=== PATIENT | male | born 1970 | race Caucasian/White ===

== ENCOUNTER 2016-12-29 16:35 | Inpatient (IN) | payer OTHER ==
[~2016-12-29] VITALS: Ht 188 cm; Wt 153.2 kg
[~2016-12-29 16:35] MED LIST: LORT5TAB PO; Z.0.NO CURRENT MEDS
[2016-12-29 16:38] VITALS: BP 150/96; PULSE 79; RESP 16; TEMP 98.7; O2SAT 97
[2016-12-29] MEDS ORDERED: LISI20TA PO (17:37)
[2016-12-29] MEDS ORDERED: TEST1GEL15 TOPICAL (17:37)
[2016-12-29] MEDS ORDERED: SODIUM CHLOR 0.9% 1000 ML INJ 1,000 ML IV SCH (17:40)
[2016-12-29] MEDS ORDERED: SODIUM CHLORIDE 0.9% FLUSH 5 ML FLUSH IVF PRN (17:45)
[2016-12-29] MEDS ORDERED: KETOROLAC TROMETHAMINE 30 MG/ML (IVP) VIAL IVP ONE (17:45)
[2016-12-29] MEDS ORDERED: ONDANSETRON HCL 4 MG/2 ML VIAL IVP ONE (17:45)
--- NOTE | 2016-12-29 18:00 | PD ---
HPI Chief Complaint: Abdominal Pain Time Seen by Provider: 17:22 Travel History International Travel<30 days: No Contact w/Intl Traveler<30days: No Traveled to known affect area: No History of Present Illness HPI 46yo M with PMH of appendectomy presents to the ED with c/o left lower abdominal pain for 4 hours. Pain is constant and sometimes goes to suprapubic region. States he had hematuria. +NBNB vomiting today. Denies any fever, chest pain, sob, diarrhea. Did not take anything for pain before. PFSH Past Medical History Diminished Hearing: No Hypertension: Yes Medical other: Yes (low testosterone) Tetanus Vaccination: < 5 Years Influenza Vaccination: Yes Past Surgical History Appendectomy: Yes Other Surgery: Yes (RHINOPLASTY) Social History Alcohol Use: Yes (OCCASIONALLY, 2 mixed drinks 12/27/16) Tobacco Use: Yes (chewing tobacco daily) Substance Use: No Allergies-Medications (Allergen,Severity, Reaction): Coded Allergies: No Known Allergies (Verified , 12/29/16) Reported Meds & Prescriptions Reported Meds & Active Scripts Active Reported Testosterone Topical (Testosterone) 25 Mg/2.5 Gm Gel 50 Mg TOPICAL DAILY Lisinopril-Hctz 20-12.5 Mg Tab 1 Tab PO DAILY Review of Systems Except as stated in HPI: all other systems reviewed are Neg Physical Exam Narrative GENERAL: 46yo M in moderate distress. SKIN: Warm and dry. HEAD: Atraumatic. Normocephalic. EYES: Pupils equal and round. No scleral icterus. No injection or drainage. ENT: No nasal bleeding or discharge. Mucous membranes pink and moist. NECK: Trachea midline. No JVD. CARDIOVASCULAR: Regular rate and rhythm. No murmur appreciated. RESPIRATORY: No accessory muscle use. Clear to auscultation. Breath sounds equal bilaterally. GASTROINTESTINAL: Abdomen soft,+LLQ, suprapubic and mild ttp epigastric. Obese. No rebound tenderness or guarding. BACK: +CVA tenderness of left. MUSCULOSKELETAL: No obvious deformities. No clubbing. No cyanosis. No edema. NEUROLOGICAL: Awake and alert. No obvious cranial nerve deficits. Motor grossly within normal limits. Normal speech. PSYCHIATRIC: Appropriate mood and affect; insight and judgment normal.4 Data Data Last Documented VS Vital Signs Date Time Temp Pulse Resp B/P Pulse Ox O2 Delivery O2 Flow Rate FiO2 12/29/16 19:07 78 16 168/72 99 Room Air 12/29/16 16:38 98.7 Orders Urinalysis - C+S If Indicated (12/29/16 16:43) Complete Blood Count With Diff (12/29/16 17:40) Comprehensive Metabolic Panel (12/29/16 17:40) Lipase (12/29/16 17:40) Prothrombin Time / Inr (Pt) (12/29/16 17:40) Act Partial Throm Time (Ptt) (12/29/16 17:40) Ct Abd/Pel W Iv Contrast(Rout) (12/29/16 17:40) Iv Access Insert/Monitor (12/29/16 17:40) Ecg Monitoring (12/29/16 17:40) Oximetry (12/29/16 17:40) Ondansetron Inj (Zofran Inj) (12/29/16 17:45) Sodium Chlor 0.9% 1000 Ml Inj (Ns 1000 M (12/29/16 17:40) Sodium Chloride 0.9% Flush (Ns Flush) (12/29/16 17:45) Electrocardiogram (12/29/16 17:40) Ketorolac Inj (Toradol Inj) (12/29/16 17:45) Morphine Inj (Morphine Inj) (12/29/16 19:45) Sodium Chlor 0.9% 1000 Ml Inj (Ns 1000 M (12/29/16 20:15) Creatine Kinase (Cpk) (12/29/16 18:00) Morphine Inj (Morphine Inj) (12/29/16 20:45) Admit Order (Ed Use Only) (12/29/16 21:19) Labs Laboratory Tests Test 12/29/16 12/29/16 18:00 20:20 White Blood Count 11.5 TH/MM3 Red Blood Count 5.06 MIL/MM3 Hemoglobin 14.8 GM/DL Hematocrit 44.0 % Mean Corpuscular Volume 87.0 FL Mean Corpuscular Hemoglobin 29.3 PG Mean Corpuscular Hemoglobin 33.7 % Concent Red Cell Distribution Width 12.6 % Platelet Count 193 TH/MM3 Mean Platelet Volume 10.2 FL Neutrophils (%) (Auto) 82.0 % Lymphocytes (%) (Auto) 11.2 % Monocytes (%) (Auto) 5.2 % Eosinophils (%) (Auto) 0.8 % Basophils (%) (Auto) 0.8 % Neutrophils # (Auto) 9.4 TH/MM3 Lymphocytes # (Auto) 1.3 TH/MM3 Monocytes # (Auto) 0.6 TH/MM3 Eosinophils # (Auto) 0.1 TH/MM3 Basophils # (Auto) 0.1 TH/MM3 CBC Comment DIFF FINAL Differential Comment Prothrombin Time 11.9 SEC Prothromb Time International 1.1 RATIO Ratio Activated Partial 26.2 SEC Thromboplast Time Sodium Level 140 MEQ/L Potassium Level 3.9 MEQ/L Chloride Level 104 MEQ/L Carbon Dioxide Level 25.2 MEQ/L Anion Gap 11 MEQ/L Blood Urea Nitrogen 16 MG/DL Creatinine 1.40 MG/DL Estimat Glomerular Filtration 55 ML/MIN Rate Random Glucose 236 MG/DL Calcium Level 9.2 MG/DL Total Bilirubin 0.4 MG/DL Aspartate Amino Transf 25 U/L (AST/SGOT) Alanine Aminotransferase 71 U/L (ALT/SGPT) Alkaline Phosphatase 58 U/L Total Creatine Kinase 204 U/L Total Protein 7.5 GM/DL Albumin 3.9 GM/DL Lipase 199 U/L Urine Color NESTOR Urine Turbidity CLOUDY Urine pH 6.0 Urine Specific Rifle 1.031 Urine Protein TRACE mg/dL Urine Glucose (UA) 250 mg/dL Urine Ketones TRACE mg/dL Urine Occult Blood LARGE Urine Nitrite NEG Urine Bilirubin NEG Urine Leukocyte Esterase NEG Urine RBC INNUM /hpf Urine WBC 3-5 /hpf Urine Squamous Epithelial 0-5 /hpf Cells Urine Bacteria NONE /hpf Microscopic Urinalysis Comment CULT NOT INDICATED MDM Medical Decision Making Medical Screen Exam Complete: Yes Emergency Medical Condition: Yes Interpretation(s) EKG: NSR 71bpm. Normal axis. Q wave III. No ST segment elevation or depression. Differential Diagnosis Acute diverticulitis vs. nephrolithiasis vs. pyelonephritis vs. colitis vs. gastritis vs. pancreatitis Narrative Course 46yo M with left lower abdominal pain and vomiting for 4 hours. Pt admits to drinking over the weekend but is not a chronic alcoholic. Labs reviewed, mild leukocytosis at 11.5. Creatinine is elevated at 1.40. Do not have prior to compare to. Glucose 236. Lipase normal. Urine is dark color. UA pending. CT a/p showed 1.5cm nonobstructing right kidney stone. Benign appearing right renal cysts. Normal bowel gas pattern. Pt given toradol 30mg IV, NS IVF, and zofran 4mg IV. Pt reevaluated at bedside and still with a lot of pain. Morphine 4mg IV given. Ordered another liter os NS IVF. Pt is still in a lot of pain. It has improved from prior. Pt reevaluated at bedside after a second dose of morphine 4mg IV and still in a lot of pain. Pt may have a kidney stone that is not radioopaque. CPK 204. Will admit pt for intractable pain and GRUPO. Discussed with [facility] hospitalist Dr. Ny and admitted to Dr. Hess. Diagnosis Primary Impression: Intractable abdominal pain Additional Impression: GRUPO (acute kidney injury) Admitting Information Admitting Physician Requests: Observation Eloina Forrester DO Dec 29, 2016 18:00
[2016-12-29 18:10] VITALS: BP 168/85; PULSE 70; RESP 20; O2SAT 98
[2016-12-29 18:21] LABS: AUTOMATED NEUTROPHIL # 9.4 TH/MM3 (1.8-7.7); BASOPHIL # 0.1 TH/MM3 (0-0.2); BASOPHIL % 0.8 % (0.0-2.0); EOSINOPHIL # 0.1 TH/MM3 (0-0.4); EOSINOPHIL % 0.8 % (0.0-4.0); HEMO FLAGS DIFF FINAL; LYMPH % 11.2 % (9.0-44.0); LYMPHOCYTE # 1.3 TH/MM3 (1.0-4.8); MEAN CORPUSCULAR HEMOGLOBIN 29.3 PG (27.0-34.0); MEAN CORPUSCULAR HGB CONC 33.7 % (32.0-36.0); MONO % 5.2 % (0.0-8.0); PLATELET COUNT 193 TH/MM3 (150-450); RED BLOOD COUNT 5.06 MIL/MM3 (4.50-5.90); RED CELL DISTRIBUTION WIDTH 12.6 % (11.6-17.2); WHITE BLOOD COUNT 11.5 TH/MM3 (4.0-11.0)
[2016-12-29 18:28] LABS: CHLORIDE 104 MEQ/L (98-107); POTASSIUM 3.9 MEQ/L (3.5-5.1); SODIUM (NA) 140 MEQ/L (136-145)
[2016-12-29 18:32] LABS: ANION GAP 11 MEQ/L (5-15); BICARBONATE 25.2 MEQ/L (21.0-32.0); BLOOD UREA NITROGEN 16 MG/DL (7-18)
[2016-12-29 18:34] LABS: APTT (PATIENT) 26.2 SEC (24.3-30.1); INTERNATIONAL NORMALIZED RATIO 1.1 RATIO; PROTHROMBIN TIME - PATIENT 11.9 SEC (9.8-11.6)
[2016-12-29 18:35] LABS: ALT (GPT) 71 U/L (12-78); AST (GOT) 25 U/L (15-37); GLOMERULAR FILTRATION RATE 55 ML/MIN (>89)
[2016-12-29 18:36] LABS: TOTAL BILIRUBIN ADULT 0.4 MG/DL (0.2-1.0)
[2016-12-29 18:38] LABS: ALKALINE PHOSPHATASE 58 U/L (45-117)
[2016-12-29 19:07] VITALS: BP 168/72; PULSE 78; RESP 16; O2SAT 99
--- NOTE | 2016-12-29 19:38 | RADHPO ---
EXAM DATE/TIME: 12/29/2016 19:04 [place] COMPARISON: No previous studies available for comparison. INDICATIONS : Abdomen pain, vomiting. IV CONTRAST: 93 cc Omnipaque 350 (iohexol) IV ORAL CONTRAST: No oral contrast ingested. RADIATION DOSE: 22.44 CTDIvol (mGy) MEDICAL HISTORY : Hypertension. SURGICAL HISTORY : Appendectomy. ENCOUNTER: Initial ACUITY: 1 day PAIN SCALE: 5/10 LOCATION: abdomen TECHNIQUE: Volumetric scanning of the abdomen and pelvis was performed. Using automated exposure control and ad justment of the mA and/or kV according to patient size, radiation dose was kept as low as reasonably achievable to obtain optimal diagnostic quality images. FINDINGS: LOWER LUNGS: The visualized lower lungs are clear. LIVER: Homogeneous density without lesion. There is no dilation of the biliary tree. No calcified gallston es. There is diffuse fatty infiltration throughout the liver. SPLEEN: Normal size without lesion. PANCREAS: Within normal limits. KIDNEYS: There is a 1.5 cm stone upper pole right kidney not causing obstruction. There is a 2.6 cm right kidn ey cyst. There is some cortical scarring of the right kidney. No hydronephrosis. The left kidney is u nremarkable. ADRENAL GLANDS: Within normal limits. VASCULAR: There is no aortic aneurysm. BOWEL/MESENTERY: The stomach, small bowel, and colon demonstrate no acute abnormality. There is no free intraperitone al air or fluid. No inflammatory changes. ABDOMINAL WALL: Within normal limits. RETROPERITONEUM: There is no lymphadenopathy. BLADDER: No wall thickening or mass. REPRODUCTIVE: Within normal limits. INGUINAL: There is no lymphadenopathy or hernia. MUSCULOSKELETAL: Within normal limits for patient age. CONCLUSION: 1. 1.5 cm nonobstructing right kidney stone. 2. Benign-appearing right renal cysts. 3. Cortical scarring right kidney. 4. Fatty infiltration of the liver. 5. Normal bowel gas pattern. Jose Pelletier MD on December 29, 2016 at 19:34 Board Certified Radiologist. This report was verified electronically.
[2016-12-29] MEDS ORDERED: MORPHINE SULFATE 4 MG/ML INJ IV PUSH ONE ×2 (19:45→20:45)
[2016-12-29] MEDS ORDERED: SODIUM CHLOR 0.9% 1000 ML INJ 1,000 ML IV ONE (20:15)
[2016-12-29 20:27] LABS: BLOOD, URINE LARGE (NEG); GLUCOSE,URINE 250 mg/dL (NEG); KETONE, URINE TRACE mg/dL (NEG); NITRITE,URINE NEG (NEG)
[2016-12-29 20:31] LABS: CREATINE KINASE 204 U/L (39-308)
[2016-12-29 20:31] LABS: URINE COLOR AMBER (YELLW/STRAW)
[2016-12-29 20:32] LABS: COMMENT (UR) CULT NOT INDICATED; CULTURE IF INDICATED CULT NOT INDICATED; RBC, URINE INNUM /hpf (0-3); SQUAMOUS EPITHELIAL CELL URINE 0-5 /hpf (0-5)
[2016-12-29] MEDS ORDERED: NALOXONE HCL 0.4 MG/ML AMP IV PRN (21:30)
[2016-12-29] MEDS ORDERED: ONDANSETRON HCL 4 MG/2 ML VIAL IV PUSH PRN (21:30)
[2016-12-29] MEDS ORDERED: MORPHINE SULFATE 4 MG/ML INJ IV PRN ×2 (21:30)
[2016-12-29] MEDS ORDERED: ONDANSETRON HCL 4 MG/2 ML VIAL IV PUSH ONE (21:30)
[2016-12-29] MEDS: SODIUM CHLOR 0.9% 1000 ML INJ 1,000 ML IV SCH (21:30)
[2016-12-29 21:50] VITALS: BP 158/77; PULSE 78; RESP 16; O2SAT 98
[2016-12-29] MEDS: cefTRIAXone INJ 1,000 MG in SODIUM CHLORIDE 0.9% INJ 100 ML IV SCH (22:11)
[2016-12-29] MEDS: ONDANSETRON HCL 4 MG/2 ML VIAL IV PUSH PRN (22:48)
[2016-12-29] MEDS ORDERED: IOHEXOL 350 MG/ML 10 ML VIAL (for RAD DIAG) IV ONE (23:01)
[2016-12-30 02:30] VITALS: BP 152/70; PULSE 78; RESP 16; O2SAT 98
[2016-12-30] MEDS: SODIUM CHLOR 0.9% 1000 ML INJ 1,000 ML IV SCH ×4 (06:28→23:17)
[2016-12-30 06:35] VITALS: BP 101/60; PULSE 87; RESP 16
[2016-12-30 07:01] LABS: AUTOMATED NEUTROPHIL # 7.9 TH/MM3 (1.8-7.7); BASOPHIL # 0.1 TH/MM3 (0-0.2); BASOPHIL % 0.9 % (0.0-2.0); EOSINOPHIL # 0.1 TH/MM3 (0-0.4); EOSINOPHIL % 1.1 % (0.0-4.0); HEMATOCRIT 41.8 % (39.0-51.0); HEMO FLAGS DIFF FINAL; LYMPH % 16.9 % (9.0-44.0); LYMPHOCYTE # 1.8 TH/MM3 (1.0-4.8); MEAN CELL VOLUME 88.2 FL (80.0-100.0); MEAN CORPUSCULAR HEMOGLOBIN 29.9 PG (27.0-34.0); MEAN CORPUSCULAR HGB CONC 33.9 % (32.0-36.0); MONO % 8.2 % (0.0-8.0); NEUT % 72.9 % (16.0-70.0); PLATELET COUNT 198 TH/MM3 (150-450); RED BLOOD COUNT 4.73 MIL/MM3 (4.50-5.90); RED CELL DISTRIBUTION WIDTH 12.5 % (11.6-17.2); WHITE BLOOD COUNT 10.8 TH/MM3 (4.0-11.0)
[2016-12-30 07:08] LABS: POTASSIUM 3.9 MEQ/L (3.5-5.1)
[2016-12-30 07:11] LABS: BICARBONATE 27.2 MEQ/L (21.0-32.0)
[2016-12-30] MEDS ORDERED: NON-FORMULARY DRUG (Lisinopril-Hctz 1 TAB) PO SCH (09:00)
[2016-12-30] MEDS ORDERED: HYDROCHLOROTHIAZIDE 25 MG TAB PO SCH (09:00)
[2016-12-30] MEDS ORDERED: LISINOPRIL 20 MG TAB PO SCH (09:00)
--- NOTE | 2016-12-30 09:50 | MH ---
cc: SHOLA HOLMAN M.D. DATE OF ADMISSION 12/29/2016 ADMISSION DIAGNOSIS 1. Left flank and left lower abdominal pain with hematuria, probable secondary to kidney stone. 2. Mild acute kidney injury. 3. Hypertension 4. Hyperlipidemia 5. Hypogonadotropic 6. Type 2 diabetes mellitus 7. Obstructive sleep apnea 8. Morbid obesity PERTINENT HISTORY This is a 46-year-old white male who presented to the emergency room on 12/29 with a 4-hour history of sudden onset of left flank and left lower abdominal pain with associated vomiting. The pain was constant and at times more severe when it would radiate into the suprapubic region. He also noted gross hematuria. He had some vomiting as well and no diarrhea. No rectal bleeding. No fever, chest pain or shortness of breath. In the ED, he required morphine for some measure of control of his pain and it was still persistent. His creatinine was a little high at 1.4 on admission and thought there may be some element of acute kidney injury. A CT scan of the abdomen and pelvis on 12/29 showed fatty liver. A 1.5 cm nonobstructing right kidney stone, he had benign appearing right renal cyst, cortical scarring of the right kidney. There was, however no mention of any stone on the left side where his pain once. There was no hydronephrosis present. He states his pain is much better this morning and he has not had a shot of pain medication since last evening. He has never had kidney stones that he is aware of. MEDICAL HISTORY 1. He has under treatment for hypertension. 2. He has hyperlipidemia but declined any treatment back in July 2014. 3. He was has type [address] Hess is his\ primary care physician who wanted to put him on metformin and ordered it for him in July when his hemoglobin A1c was 7.4, but the patient has not been taking it. He declined diabetic education at that time then. 4. He does take testosterone for hypogonadism. 5. He has never had any heart disease or kidney disease. 6. He has had no peptic ulcer disease or colon disease. 7. No stroke or seizures. 8. No lung disease. PAST SURGICAL HISTORY 1. He has had a tonsillectomy. 2. He had appendectomy. 3. He had a septoplasty on both sides and submucosal resection of the turbinates bilaterally. ALLERGIES None MEDICATIONS According to his EHR in the office, he is on: 1. Lisinopril 20/25 one a day 2. Testosterone powder which he applies 75 mg daily FAMILY HISTORY His parents are living mother is 69 has fibromyalgia. His father is 69 has had prior cardiac stents. He has had ablation procedure for arrhythmias. He has had hypertension and an aunt with diabetes. SOCIAL HISTORY He has been chewing tobacco using about one can a day for 30 years. Never smoked cigarettes. Rarely uses alcohol. He is a [employer] has been once. REVIEW OF SYSTEMS GENERAL: No fever, chills or sweats. HEENT: No runny nose, sore throat. CARDIOVASCULAR: No chest pain, orthopnea, PND. PULMONARY: No cough, hemoptysis, wheezing. GI: He had the left lower abdominal pain and flank pain as mentioned that is improved. No diarrhea. He did have vomiting. No rectal bleeding. : With hematuria. EXTREMITIES: Without edema or pain. SKIN: Without rash. NEUROLOGIC: Without headache, focal weakness, sensory loss or confusion. PHYSICAL EXAM An obese male in no acute distress. VITAL SIGNS: His BP is 101/60 this morning, pulse is 87, respirations 16, O2 sats have been 98% on room air. HEENT: TMs clear. Pupils equal. Nose negative. Mouth without inflammation or lesion. NECK: Without bruit. No JVD. HEART: Regular rate and rhythm. No murmur. LUNGS: Clear. ABDOMEN: Soft. There is no significant tenderness in the left abdomen her anywhere in the abdomen. No significant flank tenderness. He states it was tender earlier last night. EXTREMITIES: No edema. Pulses palpated. SKIN: No rash. NEUROLOGIC: Oriented x3. Cranial nerves intact. Motor sensory intact. LABORATORY His white count was 11.5 last night and is 10.8 today, hemoglobin is normal. Platelets normal. Chemistry his BUN was 16 and creatinine 1.4 last evening. His BUN is 18 and creatinine 1.7 this morning. His GFR was 55 last night on 12/29 and it was 55 last night and 44 today. His glucose random was 236 yesterday evening and 170 this morning. Electrolytes were normal. Lipase was normal. AST, ALT, alkaline phosphatase, total protein and albumin normal. Coag was good. Urinalysis showed innumerable RBCs, 3-[address] scan of the abdomen and pelvis as mentioned with a stone on the right sided and a right renal cyst on the right side and some fatty liver changes. ASSESSMENT As noted. PLAN We put in a consult for urology and awaiting them to see him. We will continue him on IV fluids for his acute kidney injury. We will recheck a BMP in the morning. If it is stable, he can be discharged provided neurology does not have any further recommendations. My clinical suspicion is that he passed a stone, which caused the hematuria. I did cover him on Rocephin last night. He will be maintained on his blood pressure medication. He will be put on a diabetic diet. We will hold off on resuming any Metformin right now. He was not taking it anyway. MD MENDEL Garnica/XAVI /6:39 AM /8:29 AM
[2016-12-30 12:06] VITALS: BP 128/78; PULSE 66; RESP 15; TEMP 97.5; O2SAT 93
[2016-12-30] MEDS: ONDANSETRON HCL 4 MG/2 ML VIAL IV PUSH PRN (13:00)
--- NOTE | 2016-12-30 14:42 | EKG ---
Date Performed: 12/29/2016 Time Performed: 17:48:42 PTAGE: 46 years EKG: Sinus rhythm Normal ECG NO PREVIOUS TRACING DOCTOR: Jorge Luis Lala Interpretating Date/Time 12/30/2016 14:39:05
[2016-12-30 16:29] VITALS: BP 136/81; PULSE 66; RESP 17; TEMP 97.3; O2SAT 94
[2016-12-30 20:00] VITALS: BP 121/72; PULSE 79; RESP 20; TEMP 97.1; O2SAT 95
[2016-12-30] MEDS: cefTRIAXone INJ 1,000 MG in SODIUM CHLORIDE 0.9% INJ 100 ML IV SCH (21:10)
--- NOTE | 2016-12-30 22:27 | PD.CONS ---
HPI Service Urology Consult Requested By Reason for Consult Nephrolithiasis Primary Care Physician Abraham Hess MD, PhD Diagnosis: (1) Intractable abdominal pain ICD Code: R10.9 History of Present Illness 46yo male with history of HTN, DM and hyperlipidemia seen in consultation for nephrolithiasis. Patient reports he began to experience severe sharp left flank pain yesterday evening that radiated to the left groin. No associated fevers, or N/V. He reported to the ED where CT scan identified a 1.5 cm right renal stone, nonobstructing and some mild left hydronephrosis with no evidence of stones. He does report some hematuria with the pain episode. He currently feels well, no pain, no fevers. It appears he may have passed a kidney stone based on his symptoms. Review of Systems ROS Limitations: Clinical Condition Constitutional: DENIES: Fever Endocrine: DENIES: Polyuria Eyes: DENIES: Blurred vision Ears, nose, mouth, throat: DENIES: Hearing loss Respiratory: DENIES: Cough Cardiovascular: DENIES: Chest pain Gastrointestinal: COMPLAINS OF: Abdominal pain Genitourinary: COMPLAINS OF: Hematuria Musculoskeletal: COMPLAINS OF: Back pain Integumentary: DENIES: Abnormal pigmentation Hematologic/lymphatic: DENIES: Bruising Immunologic/allergic: DENIES: Urticaria Neurologic: DENIES: Abnormal gait Psychiatric: DENIES: Anxiety Except as stated in HPI: all other systems reviewed are Neg Past Family Social History Past Medical History HTN DM Hyperlipidemia Obesity Past Surgical History Appendecotmy Tonsillectomy Reported Medications Reported Meds & Active Scripts Active Reported Testosterone Topical (Testosterone) 25 Mg/2.5 Gm Gel 50 Mg TOPICAL DAILY Lisinopril-Hctz 20-12.5 Mg Tab 1 Tab PO DAILY Allergies: Coded Allergies: No Known Allergies (Verified , 12/29/16) Active Ordered Medications Current Medications Medications (Trade) Dose Ordered Sig/Sandro Route Start Time Stop Time Status Last Admin IV Flush 2 ml 2 ml UNSCH PRN IVF 12/29/16 17:45 12/29/16 18:05 (Rocephin Inj/NS Inj) 100 ml @ 200 mls/hr HS IV 12/29/16 21:45 12/30/16 21:10 (Morphine Inj) 2 mg Q3H PRN IV 12/29/16 21:30 (Morphine Inj) 4 mg Q3H PRN IV 12/29/16 21:30 (Narcan Inj) 0.4 mg UNSCH PRN IV 12/29/16 21:30 (Zofran Inj) 4 mg Q6H PRN IV PUSH 12/29/16 21:45 12/30/16 13:00 (Prinivil) 20 mg DAILY PO 12/31/16 09:00 Hydrochlorothiazide 12.5 mg 12.5 mg DAILY PO 12/31/16 09:00 (NS 1000 ml Inj) 1,000 ml @ 150 mls/hr Q6H40M IV 12/30/16 09:45 12/30/16 16:25 Family History Family history reviewed and noncontributory to present illness Father with CAD Social History No Tobacce ETOH occasional Physical Exam Vital Signs Vital Signs Date Time Temp Pulse Resp B/P Pulse Ox O2 Delivery O2 Flow Rate FiO2 12/30/16 20:00 97.1 79 20 121/72 95 12/30/16 16:29 97.3 66 17 136/81 94 12/30/16 12:06 97.5 66 15 128/78 93 12/30/16 06:35 87 16 101/60 Room Air 12/30/16 02:30 78 16 152/70 98 Room Air Physical Exam GENERAL: This is a well-nourished, well-developed patient, in no apparent distress. SKIN: No rashes, ecchymoses or lesions. Cool and dry. HEAD: Atraumatic. Normocephalic. EYES: Extraocular motions intact. No scleral icterus. No injection or drainage. ENT: Nose without bleeding, purulent drainage. Airway patent. NECK: Trachea midline. No JVD or lymphadenopathy. CARDIOVASCULAR: normal pulses, extremities well perfused RESPIRATORY: Nonlabored respiration, equal chest rise GASTROINTESTINAL: Abdomen soft, non-tender, nondistended. MUSCULOSKELETAL: Extremities without clubbing, cyanosis, or edema. NEUROLOGICAL: Awake and alert. Motor and sensory grossly within normal limits. Normal speech. Laboratory Laboratory Tests Test 12/30/16 06:30 White Blood Count 10.8 Red Blood Count 4.73 Hemoglobin 14.1 Hematocrit 41.8 Mean Corpuscular Volume 88.2 Mean Corpuscular Hemoglobin 29.9 Mean Corpuscular Hemoglobin 33.9 Concent Red Cell Distribution Width 12.5 Platelet Count 198 Mean Platelet Volume 10.5 Neutrophils (%) (Auto) 72.9 Lymphocytes (%) (Auto) 16.9 Monocytes (%) (Auto) 8.2 Eosinophils (%) (Auto) 1.1 Basophils (%) (Auto) 0.9 Neutrophils # (Auto) 7.9 Lymphocytes # (Auto) 1.8 Monocytes # (Auto) 0.9 Eosinophils # (Auto) 0.1 Basophils # (Auto) 0.1 CBC Comment DIFF FINAL Differential Comment Sodium Level 142 Potassium Level 3.9 Chloride Level 106 Carbon Dioxide Level 27.2 Anion Gap 9 Blood Urea Nitrogen 18 Creatinine 1.70 Estimat Glomerular Filtration 44 Rate Random Glucose 170 Calcium Level 8.5 Result Diagram: 12/30/16 0630 12/30/16 0630 Imaging Last 48 hours Impressions Abdomen/Pelvis CT 12/29/16 1740 Signed Impressions: Service Date/Time: Thursday, December 29, 2016 19:04 - CONCLUSION: 1. 1.5 cm nonobstructing right kidney stone. 2. Benign-appearing right renal cysts. 3. Cortical scarring right kidney. 4. Fatty infiltration of the liver. 5. Normal bowel gas pattern. Jose Pelletier MD Assessment and Plan Problem List: (1) GRUPO (acute kidney injury) ICD Code: N17.9 Status: Acute (2) Intractable abdominal pain ICD Code: R10.9 Status: Acute Assessment and Plan 46yo male with left flank pain that appears to have resolved with large right renal stone and likely passed left renal stone -Review of CT scan confirms large right nonobstrucitng renal stone approx 1.5cm in size -Left collecting system with some fullness, but no evidence of obstructing stone -Patient currently doing well, no pain. Patient likely passed left ureteral stone -Recommend patient to follow-up in clinic for treatment of his right renal stone to prevent acute stone episode with flank pain -Patient is clear for discharge from Urology standpoint with follow-up in clinic in a few weeks for planning to treat his right renal stone -Patient understands and agrees with above plan -Please call with questions Efrain Crum MD Dec 30, 2016 22:27
[2016-12-31] VITALS: BP 120/67; PULSE 76; RESP 18; TEMP 97.7; O2SAT 94
[2016-12-31 06:40] LABS: POTASSIUM 3.8 MEQ/L (3.5-5.1)
[2016-12-31 06:46] LABS: BICARBONATE 27.1 MEQ/L (21.0-32.0)
--- NOTE | 2016-12-31 08:11 | HHI.DS ---
Discharge Summary Admission Date Dec 29, 2016 at 21:26 Discharge Date: Dec 31, 2016 Admitting Diagnosis Hematuria/persistent severe left flank and left lower abdominal pain/acute kidney injury (1) Nephrolithiasis Diagnosis: Principal (2) Flank pain Diagnosis: Principal (3) GRUPO (acute kidney injury) Diagnosis: Principal (4) Gross hematuria Diagnosis: Principal (5) Intractable abdominal pain Diagnosis: Principal (6) Hypertension Diagnosis: Secondary (7) Hyperlipidemia Diagnosis: Secondary (8) Type 2 diabetes mellitus Diagnosis: Secondary (9) Hypogonadism, male Diagnosis: Secondary [facility] (Dr Crum) Brief History 46 year old white male who came to the ER on 12-29-16 with sudden onset of left flank pain that radiated into the left lower abdomen and was associated with vomiting. The pain was constant and at times more severe. He had no diarrhea or rectal bleeding. He did have gross hematuria. His creatinine was a little high at 1.4 in the ER. A CT scan of the abdomen showed a large 1.5cm nonobstructing stone in the right kidney but no stone was seen on the left side where his pain was. There was no evidence of diverticulitis or acute abdominal process. He required Morphine for pain control. He was admitted for IV fluids and pain control. A urology consult was placed. CBC/BMP: 12/30/16 0630 12/31/16 0510 Significant Findings Laboratory Tests Test 12/29/16 12/29/16 12/30/16 12/31/16 18:00 20:20 06:30 05:10 Prothrombin Time 11.9 SEC Prothromb Time International 1.1 RATIO Ratio Activated Partial 26.2 SEC Thromboplast Time Total Bilirubin 0.4 MG/DL Aspartate Amino Transf 25 U/L (AST/SGOT) Alanine Aminotransferase 71 U/L (ALT/SGPT) Alkaline Phosphatase 58 U/L Total Creatine Kinase 204 U/L Total Protein 7.5 GM/DL Albumin 3.9 GM/DL Lipase 199 U/L Urine Color NESTOR Urine Turbidity CLOUDY Urine pH 6.0 Urine Specific [place] 1.031 Urine Protein TRACE mg/dL Urine Glucose (UA) 250 mg/dL Urine Ketones TRACE mg/dL Urine Occult Blood LARGE Urine Nitrite NEG Urine Bilirubin NEG Urine Leukocyte Esterase NEG Urine RBC INNUM /hpf Urine WBC 3-5 /hpf Urine Squamous Epithelial 0-5 /hpf Cells Urine Bacteria NONE /hpf Microscopic Urinalysis Comment CULT NOT INDICATED White Blood Count 10.8 TH/MM3 Red Blood Count 4.73 MIL/MM3 Hemoglobin 14.1 GM/DL Hematocrit 41.8 % Mean Corpuscular Volume 88.2 FL Mean Corpuscular Hemoglobin 29.9 PG Mean Corpuscular Hemoglobin 33.9 % Concent Red Cell Distribution Width 12.5 % Platelet Count 198 TH/MM3 Mean Platelet Volume 10.5 FL Neutrophils (%) (Auto) 72.9 % Lymphocytes (%) (Auto) 16.9 % Monocytes (%) (Auto) 8.2 % Eosinophils (%) (Auto) 1.1 % Basophils (%) (Auto) 0.9 % Neutrophils # (Auto) 7.9 TH/MM3 Lymphocytes # (Auto) 1.8 TH/MM3 Monocytes # (Auto) 0.9 TH/MM3 Eosinophils # (Auto) 0.1 TH/MM3 Basophils # (Auto) 0.1 TH/MM3 CBC Comment DIFF FINAL Differential Comment Sodium Level 143 MEQ/L Potassium Level 3.8 MEQ/L Chloride Level 107 MEQ/L Carbon Dioxide Level 27.1 MEQ/L Anion Gap 9 MEQ/L Blood Urea Nitrogen 19 MG/DL Creatinine 1.30 MG/DL Estimat Glomerular Filtration 60 ML/MIN Rate Random Glucose 174 MG/DL Calcium Level 8.3 MG/DL Laboratory Tests Test 12/29/16 12/29/16 12/30/16 12/31/16 18:00 20:20 06:30 05:10 White Blood Count 11.5 TH/MM3 (4.0-11.0) Neutrophils (%) (Auto) 82.0 % 72.9 % (16.0-70.0) (16.0-70.0) Neutrophils # (Auto) 9.4 TH/MM3 7.9 TH/MM3 (1.8-7.7) (1.8-7.7) Prothrombin Time 11.9 SEC (9.8-11.6) Creatinine 1.40 MG/DL 1.70 MG/DL (0.60-1.30) (0.60-1.30) Estimat Glomerular Filtration 55 ML/MIN (>89) 44 ML/MIN (>89) 60 ML/MIN (>89) Rate Random Glucose 236 MG/DL 170 MG/DL 174 MG/DL (74-106) (74-106) (74-106) Urine Color NESTOR (YELLW/STRAW) Urine Turbidity CLOUDY (CLEAR) Urine Glucose (UA) 250 mg/dL (NEG) Urine Ketones TRACE mg/dL (NEG) Urine Occult Blood LARGE (NEG) Urine RBC INNUM /hpf (0-3) Monocytes (%) (Auto) 8.2 % (0.0-8.0) Blood Urea Nitrogen 19 MG/DL (7-18) Calcium Level 8.3 MG/DL (8.5-10.1) Imaging Last Impressions Abdomen/Pelvis CT 12/29/16 1740 Signed Impressions: Service Date/Time: Thursday, December 29, 2016 19:04 - CONCLUSION: 1. 1.5 cm nonobstructing right kidney stone. 2. Benign-appearing right renal cysts. 3. Cortical scarring right kidney. 4. Fatty infiltration of the liver. 5. Normal bowel gas pattern. Jose Pelletier MD PE at Discharge Exam: Obese male in no distress HEENT: Pupils equal, mouth negative Neck: No JVD Heart: RRR with no murmurs or gallops Lungs:clear Abdomen: Soft, nontender, no masses Extremities: No edema Neuro: No focal findings Hospital Course Patient was admitted and given IV normal saline for his acute kidney injury. He was maintained on Morphine. Urology was consulted. His creatine was 1.7 on 12-30-16 but improved to 1.3 on 12-31-16. He was seen late on 12-30-16 by urology who thought like I did that he most likely had passed a stone on the left side. He was cleared for discharge and recommended by the urologist to see him in the office to also address the large stone in the right kidney, likely requiring a future lithotripsy. Patient's pain had pretty much resolved by the morning of 12-30-16 and he was feeling good today. He will resume his blood pressure medication and testosterone that he has at home. He has been just watching a diet for his diabetes and had refused cholesterol lowering medication in July. He will followup with Dr Hess in one week. I ordered a BMP to be repeated in one week to recheck his kidney function. He will followup with urology in around 2 weeks. Pt Condition on Discharge: Good Discharge Disposition: Discharge Home Discharge Instructions DIET: Follow Instructions for: Diabetic Diet Activities you can perform: Regular-No Restrictions Follow up Referrals: PCP Follow-up - [address] Hess Urology - 2 Weeks with Efrain Crum MD New Orders: BASIC METABOLIC PROF - 1 Week Continued Medications: Lisinopril-Hctz (Lisinopril-Hctz) 20-12.5 Mg Tab 1 TAB PO DAILY Blood Pressure Management #30 Ref 0 TAB Testosterone Topical (Testosterone Topical) 25 Mg/2.5 Gm Gel 50 MG TOPICAL DAILY Hormone Replacement #1 Ref 0 TUBE Olaf Ny MD Dec 31, 2016 08:11
[2016-12-31] MEDS ORDERED: HYDROCHLOROTHIAZIDE 25 MG TAB PO SCH (09:00)
[2016-12-31] MEDS ORDERED: LISINOPRIL 20 MG TAB PO SCH (09:00)
== END 2016-12-31 08:12 | disposition home or self-care (01) | DRG 694 ==
LOC: PHED 16:35 → PHEDA 21:20 → OBSVTOIN 21:26 → PHEDH 12-30 01:26 → PH3B 12-30 07:59
PROVIDERS: ADMIT Family Medicine; ATTEND Family Medicine
DX: N13.2 Hydronephrosis with renal and ureteral calculous obstruction (principal); N17.9 Acute kidney failure, unspecified; K76.0 Fatty (change of) liver, not elsewhere classified; Z68.41 Body mass index [BMI] 40.0-44.9, adult; I10 Essential (primary) hypertension; F17.220 Nicotine dependence, chewing tobacco, uncomplicated; E78.5 Hyperlipidemia, unspecified; E11.9 Type 2 diabetes mellitus without complications; G47.33 Obstructive sleep apnea (adult) (pediatric); E66.01 Morbid (severe) obesity due to excess calories; E29.1 Testicular hypofunction; Z79.84 Long term (current) use of oral hypoglycemic drugs; Z91.14 Patient's other noncompliance with medication regimen
CPT/HCPCS: 74177; 80048; 80053; 81001; 82550; 83690; 85025; 85610; 85730; 93005; 96361; 96374; 96375; 96376; J0696; J1885; J2270; J2405; J7030; Q9967